=== PATIENT | female | born 1970 | race Caucasian/White ===

== ENCOUNTER 2023-10-20 13:43 | Emergency (ER) | payer OTHER, SELFPAY ==
[2023-10-20 13:51] VITALS: BP 166/79; PULSE 92; TEMP 36.7; O2SAT 97; BMI 27.8
--- NOTE | 2023-10-20 14:15 | ED_ITS ---
HPI - Animal Bite General Chief Complaint: Animal Bite Stated Complaint: ANIMAL BITE, LOWER EXTREMITY RIGHT Time Seen by Provider: 10/20/23 13:48 Source: patient Mode of arrival: walk-in Limitations: no limitations History of Present Illness HPI narrative: Patient was trying to pull apart two dogs that were fighting and one of the dogs apparently bit her in the right foot. This just happened and she only had time to quickly pick off some grass before coming to the ED for evaluation - she las a cut to the dorsal surface of the right foot. No other injuries. She said that her tetanus is not up to date. Nothing taken at home for the pain. Related Data Home Medications ?Medication ?Instructions ?Recorded ?Confirmed No Known Home Medications 10/20/23 10/20/23 Previous Rx's ?Medication ?Instructions ?Recorded amoxicillin 875 mg-potassium 1 tab PO BID #14 tabs 10/20/23 clavulanate 125 mg tablet Allergies Allergy/AdvReac Type Severity Reaction Status Date / Time No Known Drug Allergies Allergy Verified 10/20/23 13:50 Exam Narrative Exam Narrative: Nurses notes and vital signs reviewed and patient is not hypoxic. afebrile General: Well-appearing and in no apparent distress. Skin: Warm, dry, no pallor noted. Cardiovascular: Normal peripheral perfusion. Respiratory: No accessory muscle use or respiratory distress. Musculoskeletal: 1.4cm linear laceration to the dorsum of the right foot - no foreign material found on visual inspection of the wound, which extends into the subcutaneous tissue. No active bleeding. I do not see tendon laceration and the patient has normal ROM of all 5 toes of the right foot. Right foot and ankle with normal ROM, no calf or popliteal tenderness, no lower extremity edema/swelling Neurological: A&O x4. No cranial nerve dysfunction observed. No truncal ataxia. Moves all extremities. Sensation intact. Psychiatric: Cooperative and interactive. Normal mood and affect. Constitutional Vital Signs, click to edit/add: Last Vital Signs Temp 98.0 F 10/20/23 13:51 Pulse 92 H 10/20/23 13:51 Resp 18 10/20/23 13:51 BP 166/79 H 10/20/23 13:51 Pulse Ox 97 10/20/23 13:51 O2 Del Method Room Air 10/20/23 13:51 Course Vital Signs Vital signs: Vital Signs Temperature 98.0 F 10/20/23 13:51 Pulse Rate 92 H 10/20/23 13:51 Respiratory Rate 18 10/20/23 13:51 Blood Pressure 166/79 H 10/20/23 13:51 Pulse Oximetry 97 10/20/23 13:51 Oxygen Delivery Method Room Air 10/20/23 13:51 Temperature 98.0 F 10/20/23 13:51 Pulse Rate 92 H 10/20/23 13:51 Respiratory Rate 18 10/20/23 13:51 Blood Pressure 166/79 H 10/20/23 13:51 Pulse Oximetry 97 10/20/23 13:51 Oxygen Delivery Method Room Air 10/20/23 13:51 MDM - Animal Bite MDM Narrative Medical decision making narrative: The patient was given Augmentin for coverage of potential infection. Tetanus was updated. X-rays of the right foot were obtained. Laceration repair: Done under sterile conditions. The use of Shur-Clens prep the area. Local injection with lidocaine 1% was used, approximately 5 cc. The wound was irrigated copiously with normal saline. The wound was explored there was no evidence of foreign material. The laceration was approximated with 3-0 nylon. Four simple interrupted sutures were placed. Patient tolerated the procedure well. The patient was neurovascularly intact post. the patient had bacitracin applied to the laceration and a dry sterile dressing was place. The patient will need to follow-up in the next 8-10 days for removal No foreign radio-opaque foreign material or fractures noted on foot xrays. AIDA Faye closed the laceration as detailed above. Patient discharged home with prescription for Augmentin - she declined offer for six [place]. She can see her PCP for follow up and have her sutures out in 10 days. ED return for signs of infection was discussed. Imaging Data xr foot: Attestation: I personally reviewed and interpreted this imaging study as follows: My impression: no foreign material or fracture noted Radiologist's impression: ITS Impressions Foot X-Ray 10/20/23 14:32 IMPRESSION: 1. Subcutaneous air within distal dorsal soft tissues consistent with patient history. No radiopaque foreign body. 2. No acute bone involvement. Chronic bunion formation. Electronically authenticated by: ZEYAD SMITH Date: 10/20/2023 14:55 Discharge Plan Discharge Stand Alone Forms: Portal Instructions Chief Complaint: Animal Bite Clinical Impression: Dog bite, Foot laceration Patient Disposition: Home, Self-Care Time of Disposition Decision: 14:54 Prescriptions / Home Meds: New amoxicillin-pot clavulanate 875-125 mg tablet 1 tab PO BID Qty: 14 0RF No Action No Known Home Medications Print Language: Kazakh Instructions: Animal Bite (ED), Laceration (ED) Referrals: BON PERKINS [Primary Care Provider] - 1 week
[2023-10-20] MEDS: SODIUM CHLORIDE 0.9% IRRIG SOLUTION 1,000 ML BOTTLE 1000 ML IRR (14:18)
--- NOTE | 2023-10-20 14:32 | XR_ITS ---
The [address] [address] Patient Name: GAMALIEL APPIAH MRN: [id number] date: 1970 Sex: F Assigned Patient Location: ER Current Patient Location: ED.MAIN Accession/Order Number: [id number] Exam Date: 10/20/2023 14:25 Report Date: 10/20/2023 14:55 At the request of: RACHEL YAN Procedure: XR foot RT min 3V PROCEDURE: XR foot RT min 3V HISTORY: dog bite, laceration COMPARISON: None. FINDINGS: BONES:Prominent bunion formation. No fracture, dislocation, bone lesion. SOFT TISSUES:Distal dorsal soft tissue swelling and subcutaneous air. EFFUSION:None visible. OTHER: Negative. XR/XR foot RT min 3V IMPRESSION: 1. Subcutaneous air within distal dorsal soft tissues consistent with patient history. No radiopaque foreign body. 2. No acute bone involvement. Chronic bunion formation. Electronically authenticated by: ZEYAD SMITH Date: 10/20/2023 14:55
[2023-10-20] MEDS: HYDROCODONE/ACET 5-325 MG TABLET 1 TAB PO (14:35)
[2023-10-20] MEDS: AMOXICILLIN/POTASSIUM CLAV 1 TAB TABLET PO (14:36)
[2023-10-20] MEDS: ADACEL DIPH,PERTUSS(ACELL),TET VAC/PF 0.5 ML ADULT SYRINGE IM (14:36)
[2023-10-20] MEDS: LIDOCAINE HCL 1% 100 MG/10 ML MDV INJ (14:37)
[2023-10-20] MEDS: BACITRACIN 0.9 GM PACKET 1 PACKET TOPICAL (14:41)
== END 2023-10-20 15:11 | disposition home or self-care (01) ==
PROVIDERS: Emergency Provider Emergency Medicine; PCP Family Medicine
DX: S91.351A Open bite, right foot, initial encounter (principal); W54.0XXA Bitten by dog, initial encounter; Z23 Encounter for immunization
CPT/HCPCS: 12001; 73630; 90471; 90715; 99285

== ENCOUNTER 2023-10-23 18:28 | Emergency (ER) | payer OTHER, SELFPAY ==
[2023-10-23 18:32] VITALS: BP 180/96; PULSE 80; TEMP 36.6; O2SAT 98; BMI 27.8
--- NOTE | 2023-10-23 19:32 | ED.SKABFB1 ---
HPI - Skin/Abscess/Foreign Bdy General Chief complaint: Skin/Abscess/Foreign Body Stated complaint: wound check Time Seen by Provider: 10/23/23 19:26 Source: patient Mode of arrival: walk-in History of Present Illness HPI narrative: seen here 4 days ago after dog bite right foot. lac repaired and discharged home with Augmentin. Now returns with redness, pain and swelling of her foot. Redness has extended and is now including her ankle. No fever Related Data Home Medications ?Medication ?Instructions ?Recorded ?Confirmed No Known Home Medications 10/20/23 10/20/23 Previous Rx's ?Medication ?Instructions ?Recorded amoxicillin 875 mg-potassium 1 tab PO BID #14 tabs 10/20/23 clavulanate 125 mg tablet Allergies Allergy/AdvReac Type Severity Reaction Status Date / Time No Known Drug Allergies Allergy Verified 10/20/23 13:50 Review of Systems ROS Status of ROS 10 or more systems reviewed and unremarkable except as noted in history and below Exam Constitutional Vital Signs, click to edit/add: Last Vital Signs Temp 97.8 F 10/23/23 18:32 Pulse 80 10/23/23 18:32 Resp 16 10/23/23 18:32 BP 180/96 H 10/23/23 18:32 Pulse Ox 98 10/23/23 18:32 O2 Del Method Room Air 10/23/23 18:32 Common normals: no apparent distress, average body habitus, oriented x3, no limitations, healthy appearing, alert and well nourished Eye Common normals: EOMs intact bilaterally and conjunctivae normal Respiratory Common normals: normal respiratory effort, no retractions, no use of accessory muscles and clear to auscultation bilaterally Cardio Common normals: regular rate, regular rhythm, S1 normal heart sound and S2 normal heart sound Extremity Other: lac dorsum right distal foot just above her toes. lac in place. surrounding erythema that extends to her ankle and associated with swelling Neuro Common normals: oriented x3, CN's II-XII intact bilaterally, moves all extremities and no focal motor deficits Psych Appearance: grossly normal Course Vital Signs Vital signs: Vital Signs Temperature 97.8 F 10/23/23 18:32 Pulse Rate 80 10/23/23 18:32 Respiratory Rate 16 10/23/23 18:32 Blood Pressure 180/96 H 10/23/23 18:32 Pulse Oximetry 98 04/21/24 18:32 Oxygen Delivery Method Room Air 10/23/23 18:32 Temperature 97.8 F 10/23/23 18:32 Pulse Rate 80 10/23/23 18:32 Respiratory Rate 16 10/23/23 18:32 Blood Pressure 180/96 H 10/23/23 18:32 Pulse Oximetry 98 10/23/23 18:32 Oxygen Delivery Method Room Air 10/23/23 18:32 MDM - Skin/Abscess/Foreign Bdy MDM Narrative Medical decision making narrative: patient presents with post lac repair cellulitis dorsum right foot. She states the lac was from dog bite. She was seen here 4 days ago and prescribed Augmentin. The infection has spread from the proximal aspect of her foot at the lac site to her ankle with associated swelling and pain. WBC elevated. mild elevation of CRP and sed rate. given dose of IV antibiotics in the department and discharged with prescription Lab Data Labs: Lab Results 10/23/23 Range/Units 19:40 WBC 8.8 (4.0-11.0) 10^3/uL RBC 4.10 L (4.20-5.40) 10^6/uL Hgb 12.5 (12.0-16.0) g/dL Hct 39.0 (36.0-48.0) % MCV 95.1 (81.0-99.0) fL MCH 30.5 (26.7-34.0) pg MCHC 32.1 (29.9-35.2) g/dL RDW 12.5 (11.0-15.0) % Plt Count 284 (150-450) 10^3/uL MPV 9.3 L (9.5-13.5) fL Neut % (Auto) 64.7 (43.0-75.0) % Lymph % (Auto) 24.4 (20.5-60.0) % [place] % (Auto) 7.6 (1.7-12.0) % Eos % (Auto) 2.8 (0.9-7.0) % Baso % (Auto) 0.3 (0.2-2.0) % Neut # (Auto) 5.7 (1.4-6.5) 10^3/uL Lymph # (Auto) 2.2 (1.2-3.8) 10^3/uL [place] # (Auto) 0.7 (0.3-0.8) 10^3/uL Eos # (Auto) 0.3 (0.0-0.7) 10^3/uL Baso # (Auto) 0.0 (0.0-0.1) 10^3/uL Abs Immat Gran (auto) 0.02 (0.00-0.03) 10^3/uL Imm/Tot Granulo (auto) 0.2 (0.0-0.5) % ESR 49 H (<=30) mm/hr Sodium 142 (136-145) mmol/L Potassium 3.7 (3.5-5.1) mmol/L Chloride 105 (98-107) mmol/L Carbon Dioxide 27.6 (21.0-32.0) mmol/L Anion Gap 13.1 BUN 18.0 (7.0-18.0) mg/dL Creatinine 0.75 (0.55-1.02) mg/dL Est GFR ( Amer) >60 (>=60) Est GFR (Non-Af Amer) >60 (>=60) BUN/Creatinine Ratio 24.0 Glucose 90 (74-106) mg/dL Calcium 9.5 (8.5-10.1) mg/dL C-Reactive Protein 1.79 H (<=0.50) mg/dL Discharge Plan Discharge Stand Alone Forms: Portal Instructions Chief Complaint: Skin/Abscess/Foreign Body Clinical Impression: Dog bite, Cellulitis Patient Disposition: Home, Self-Care Prescriptions / Home Meds: No Action No Known Home Medications amoxicillin-pot clavulanate 875-125 mg tablet 1 tab PO BID Qty: 14 0RF Print Language: Georgian Instructions: Animal Bite (ED), Cellulitis (ED) Additional Instructions: take probiotics while on antibiotics. Have wound rechecked in the next couple of days Referrals: BON PERKINS [Primary Care Provider] - 1 week Discharge Date/Time: 10/23/23 21:02
[2023-10-23] MEDS: CEFAZOLIN SODIUM/DEXTROSE,ISO 1 GM/50 ML IV.SOLN IV (19:44)
[2023-10-23] MEDS: CLINDAMYCIN PHOSPHATE/D5W 600 MG/50 ML PIGGYBACK 100 MG IV (19:44)
[2023-10-23 19:50] LABS: Basophils Percent Auto 0.3 % (0.2-2.0); Eosinophils Absolute Auto 0.3 10^3/uL (0.0-0.7); Eosinophils Percent Auto 2.8 % (0.9-7.0); Hemoglobin 12.5 g/dL (12.0-16.0); Immature Granulocytes Abs Auto 0.02 10^3/uL (0.00-0.03); Immature Granulocytes Pct Auto 0.2 % (0.0-0.5); Lymphocytes Absolute Auto 2.2 10^3/uL (1.2-3.8); Lymphocytes Percent Auto 24.4 % (20.5-60.0); Mean Corpuscular HGB Conc 32.1 g/dL (29.9-35.2); Mean Corpuscular Hemoglobin 30.5 pg (26.7-34.0); Mean Corpuscular Volume 95.1 fL (81.0-99.0); Mean Platelet Volume 9.3 fL (9.5-13.5); Monocytes Absolute Auto 0.7 10^3/uL (0.3-0.8); Monocytes Percent Auto 7.6 % (1.7-12.0); Neutrophils Absolute Auto 5.7 10^3/uL (1.4-6.5); Neutrophils Percent Auto 64.7 % (43.0-75.0); Platelet Count 284 10^3/uL (150-450); Red Cell Distribution Width 12.5 % (11.0-15.0); White Blood Count 8.8 10^3/uL (4.0-11.0)
[2023-10-23 19:55] LABS: Erythrocyte Sedimentation Rate 49 mm/hr (<=30)
[2023-10-23 20:02] LABS: Anion Gap 13.1; C Reactive Protein 1.79 mg/dL (<=0.50); Calcium 9.5 mg/dL (8.5-10.1); Carbon Dioxide 27.6 mmol/L (21.0-32.0); Chloride 105 mmol/L (98-107); Estimated GFR (African America >60 (>=60); Estimated GFR (Non-African Ame >60 (>=60); Glucose 90 mg/dL (74-106); Potassium 3.7 mmol/L (3.5-5.1); Sodium 142 mmol/L (136-145)
== END 2023-10-23 21:02 | disposition home or self-care (01) ==
PROVIDERS: Emergency Provider Internal Medicine; PCP Family Medicine
DX: S91.351D Open bite, right foot, subsequent encounter (principal); L03.90 Cellulitis, unspecified; W54.0XXD Bitten by dog, subsequent encounter
CPT/HCPCS: 36415; 80048; 85025; 85652; 86140; 96365; 96375; 99284